=== PATIENT | female | born 1970 ===

== ENCOUNTER 2025-06-09 09:45 | Outpatient (RCR) | payer OTHER, SELFPAY ==
--- NOTE | 2025-06-06 18:22 | PT.OPPOC ---
Addendum entered and electronically signed by Seble De Jesus, PT 06/06/25 18:25: POC sent Original Note: Physical, Occupational & Speech Therapy At [facility] Current Diagnoses Radiculopathy, lumbar region (06/06/25) Low back pain, unspecified (06/06/25) Visit Care Team Role Provider Type SOUTH Eng Attending Provider Non-Staff Family Provider Primary Care Provider Referring Provider Specialty: Nursing Address: [address] [place] [address], [facility] [address], [place], [address] Email: Plan Of Care PT OP: Lower Back/Lower Extremity Start: 06/01/25 09:12 Freq: Status: Active Protocol: Document 06/06/25 09:48 [facility] (Rec: 06/06/25 11:02 [facility] [id number]) Out-Patient Physical Therapy Visit Information Visit Information Visit Type Initial Evaluation Visit Start Time 09:49 Visit Stop Time 10:34 Visit Number 1 Number of STILL RUNNER Visits 0 Progress Note Due 07/06/25 Current Condition History of Current Condition Onset Date Nov Current Complaints LBP, R lat leg pain and foot numbness History of Current Pt reports back in nov, had a very sharp pain from Condition buttocks down leg. Went to [facility]. Got better after about 5 weeks. Toes and 1/2 foot still numb after. still feels some in lat post thigh and calf. Gets cramps mostly night time. About March,Missed a step d/t not feeling foot, and fell down and twisted her back. That caused her to since have problems when doing dishes and can't do more than 10 min. When cooking dinner (loves to cook) by the time she is done, or sometimes in the middle of prep, she starts to feel R SI/glute tightness and then sharp pain and has to sit down. The longer she waits, the longer she has to sit for relief. Had MRI done in [facility] that shows bulging discs at 2,3,4. Going to [place] in Jul to visit family and needs to be able to walk. aggravate: pushing crate for chickens, standing ( kitchen work), lifting, walk distance relief: sit down, lidocane Prior Treatments and MRI in [facility] Tests Treatment Goals Patient/Caregiver be able to do kitchen work (cook, dishes etc), be able Goals to walk more Patient Questionnaires Oswestry Low Back Index Oswestry Score 30% OP Gait Assessment Comments Gait Comments dec lumbar motion, lat leaning B Posture Evaluation Comments Posture Comments toes out B, genu recurvatum, inc kyphosis, R iliac crest higher, equal greater trochanter Lumbar Spine Range of Motion Lumbar Spine Active Percentage Flexion 25 Extension 75 Rotation Left 25 Rotation Right 25 Lateral Flexion Left 60 Lateral Flexion 60 Right Comments L SB causes pain R glute and LB; pain LB w/R rot,1 in above malleoli w/flex w/o pelvis blocked, top 1/3 of thigh w/pelvis blocked Special Tests Lumbar Spine Special Tests SLR Test Results postive R-numb feeling reflex Test Results patellar tendon 2+ B Comments achilles 0 R; L 2+ Slump Test Results positive R Hip Strength Hip Manual Muscle Testing Right Flexion (L2) 3+ Fair+ Extension (S1) 3+ Fair+ Abduction 3 Fair Adduction 3+ Fair+ External Rotation 4 Good Internal Rotation 3+ Fair+ Left Flexion (L2) 4 Good Extension (S1) 4 Good Abduction 4- Good- Adduction 4- Good- External Rotation 5 Normal Internal Rotation 5 Normal Knee Strength Knee Manual Muscle Testing Right Flexion (S2) 4 Good Extension (L3) 4- Good- Left Flexion (S2) 5 Normal Extension (L3) 5 Normal Ankle/Foot Strength Ankle and Foot Manual Muscle Testing Right Dorsiflexion (L4) 4+ Good+ Plantarflexion (S1) 4+ Good+ Comments seated testing Left Dorsiflexion (L4) 5 Normal Plantarflexion (S1) 5 Normal Toe Strength Toe Manual Muscle Testing Right Great Toe Extension 4+ Good+ Left Great Toe Extension 5 Normal Therapeutic Exercises Supine Exercises stretches Supine Exercise Name knee to opp chest Side bilateral Equipment Used towel Reps/Minutes 45 sec ea sciatic Supine Exercise Name n glide Side right Equipment Used towel Reps/Minutes 10 Self-Care/Home Management Treatment Education Other Education 10 min: edu re: dermatomes and that seems affected at L5-S1 and shown map. Pt encouraged to get MRI to PT and we will determine if possible further look with spinal specialist ; edu to try ice Physical Therapy Assessment Rehab Potential Rehabilitation Good Potential Evaluation Complexity Number of Personal 1-2 Factors/ Comorbidities Number of Body 4 or More Systems Impaired Clinical Evolving Presentation at Evaluation Impairments Impairments Activity Tolerance,Balance,Functional Activities, Functional Mobility,Gait,Pain,Posture,ROM,Sensation, Soft Tissue Mobility,Strength,Transfers Goals activity Director Park Goal (LTG) Pt will be able to cook/clean and do other standing chores w/o inc pain in RLE or back LTG Duration 09/04 walking Director Park Goal (LTG) Pt will report being able to walk distances w/o need to sit down d/t pain LTG Duration 09/04 strength Short Term Goal (STG Pt will demonstrate independence w/HEP by being able to ) perform with no more than min cues. STG Duration 07/29 Director Park Goal (LTG) Pt will score at least 4+/5 on all BLE MMT and at least 3/5 LPM to show improved strength to allow pt to cook/ do housework w/o inc pain LTG Duration 09/04 Assessment Summary Assessment Pt presents w/LBP and symptoms in L5-S1 distribution on RLE w/positive neural tension testing, no R achilles reflex and RLE weakness and numbness/tingling. She has R>L Rsided LBP, R post lat LE pain and numbness of R foot toes 3-5. MRI has been completed but pt did not have it with her, but said doctor was not concerned by it. She does have postural changes w/SI dysfunction and dec lumbar ROM. She would benefit from skilled PT to address deficits and improve function including inc ability to walk for upcoming trip and stand for household activities. Physical Therapy Plan Frequency and Duration Frequency of 2x/Week Treatment Duration of 12 treatment (weeks) Plan of Care Start 06/06/25 Date Plan of Care End 09/04/25 Date Therapeutic Interventions Therapeutic Balance Training,Gait Training,Manual Therapy, Interventions Neuromuscular Re-education,Patient/Caregiver Education, Self-Care/Home Management,Soft Tissue Mobilization, Taping,Therapeutic Activities,Therapeutic Exercises Modalities Cold Pack/Ice Massage,Electric Stimulation,Hot Packs, Infrared Therapy,Traction- Mechanical,Ultrasound Next Visit Focus/Plan Next Note Type Treatment Note Next Visit Plan manual to pelvis, Lumbar spine, hip and sciatic n path, core exercises, gentle back and hip stretching and strength Plan of Care Dates Plan of Care Start Date 06/06/25 Plan of Care End Date 09/04/25 Electronically Signed by: Seble De Jesus, PT 06/06/25 1822 If you are in agreement with this Plan of Care, please return a signed and dated copy. I have reviewed this Plan of Care and certify that the skilled therapy services above are required to meet the patient?s needs. Physician Signature Date Printed Name and Credentials Clinical Instructor Signature Printed Name and Credentials
--- NOTE | 2025-06-09 10:43 | PT.OTN ---
Current Diagnoses Radiculopathy, lumbar region (06/09/25) Low back pain, unspecified (06/09/25) Physical Therapy Treatment Note PT OP: Lower Back/Lower Extremity Start: 06/01/25 09:12 Freq: Status: Active Protocol: Document 06/09/25 09:27 [facility] (Rec: 06/09/25 09:59 [facility] [id number]) Out-Patient Physical Therapy Visit Information Visit Information Visit Type Treatment Note Visit Note Visit [email or web address]: [email or web address] Visit Start Time 09:35 Visit Stop Time 10:35 Visit Number 2 Number of SANITATION WORKER Visits 1 Progress Note Due 07/06/25 OP-PT Subjective Patient Comments Patient Comments Patient reports she is about the same. Patient reports toes are numb and can feel nerve post LE, barely can feel it in the back standing start of session, reports if she has to bend at sink in this position ( demos hip hinge) back hurts with in 10 min. Therapeutic Exercises Supine Exercises bridge Supine Exercise Name HEP Side bilateral Reps/Minutes X 12 Comments VC to push into heels and for segmental bridge Mod Bubba stretch Supine Exercise Name HEP Side left Reps/Minutes one min X 1 with AROM knee flex X 10 Comments Verbal cues stretches Supine Exercise Name knee to opp chest Side bilateral Equipment Used towel Reps/Minutes 60 sec X 2 ea Comments towel to hold LE, Verbal cues to hold 60 sec Sidelying Exercises reverse clamshell Sidelying Exercise HEP Name Reps/Minutes X15 each LE Comments verbal cues Standing Exercises glut med isometric Standing Exercise possibly next session Name bird dog Standing Exercise possibly next session Name Manual Therapy Treatment Consent Patient gave verbal Yes consent for manual treatment Soft Tissue Mobilization post R LE Mobilization Type Cross-Friction,Rolling Intensity/Depth Moderate Body Position Sidelying Comments to deep with AROM knee flex ext and ankle DF, PF B hips Body Location piriformis and illiopsoas Mobilization Type Cross-Friction,Rolling Intensity/Depth Moderate Body Position Sidelying Manual Techniques MET for [place] LONG Comments 6 X 6 sec pubic shotgun and MET for [place] LONG Physical Therapy Assessment Goals activity Retail Security Professional Goal (LTG) Pt will be able to cook/clean and do other standing chores w/o inc pain in RLE or back LTG Duration 09/04 walking Retail Security Professional Goal (LTG) Pt will report being able to walk distances w/o need to sit down d/t pain LTG Duration 09/04 strength Short Term Goal (STG Pt will demonstrate independence w/HEP by being able to ) perform with no more than min cues. STG Duration 07/29 Retail Security Professional Goal (LTG) Pt will score at least 4+/5 on all BLE MMT and at least 3/5 LPM to show improved strength to allow pt to cook/ do housework w/o inc pain LTG Duration 09/04 Assessment Summary Assessment Patient reports feeling much looser end of session. Ipsilateral trunk side bend with ambulation excessive. Patient advised to walk distance/time that does not cause cramping. Physical Therapy Plan Frequency and Duration Frequency of 2x/Week Treatment Duration of 12 treatment (weeks) Plan of Care Start 06/06/25 Date Plan of Care End 09/04/25 Date Next Visit Focus/Plan Next Note Type Treatment Note Next Visit Plan manual to pelvis, Lumbar spine, hip and sciatic n path, core exercises, gentle back and hip stretching and strength, Possibly glute med activation nest session, assess walking gibran, possibly assess pace/2 min walk test?
--- NOTE | 2025-07-18 15:57 | PT.OPDS ---
Current Diagnoses Radiculopathy, lumbar region (06/09/25) Low back pain, unspecified (06/09/25) Visit Care Team Role Provider Type SOUTH Eng Attending Provider Non-Staff Family Provider Primary Care Provider Referring Provider Specialty: Nursing Address: [address] [place] [address], [address], [address] Email: Visit Number Visit Number 2 Discharge Summary PT OP: Lower Back/Lower Extremity Start: 06/01/25 09:12 Freq: Status: Active Protocol: Document 07/18/25 15:56 [facility] (Rec: 07/18/25 15:57 [facility] [id number]) Physical Therapy Assessment Goals activity Architectural Manager Goal (LTG) Pt will be able to cook/clean and do other standing chores w/o inc pain in RLE or back LTG Duration 09/04 walking Intermediate Goal (LTG) Pt will report being able to walk distances w/o need to sit down d/t pain LTG Duration 09/04 strength Short Term Goal (STG Pt will demonstrate independence w/HEP by being able to ) perform with no more than min cues. STG Duration 07/29 Intermediate Goal (LTG) Pt will score at least 4+/5 on all BLE MMT and at least 3/5 LPM to show improved strength to allow pt to cook/ do housework w/o inc pain LTG Duration 09/04 Assessment Summary Assessment Pt only seen for 2 sessions. Had to be called to cancel as she did not get further auth. When called pt said: she was already planning on cancelling remaining appointments as she is out of town until August. Per front: She is aware that she will need a new referral and authorization at that time. DC at this time Physical Therapy Plan Discharge Physical Therapy Discharge Reasons Patient Request
== END 2025-07-19 08:45 | disposition home or self-care (01) ==
LOC: PHYS 09:45
PROVIDERS: Family Provider Nurse Practitioner Family; PCP Nurse Practitioner Family; Referring Provider Nurse Practitioner Family; Visit Provider Nurse Practitioner Family
DX: M54.50 Low back pain, unspecified (principal); M54.16 Radiculopathy, lumbar region
CPT/HCPCS: 97110; 97140; 97162; 97535